=== PATIENT | male | born 1980 | race Caucasian/White ===

== ENCOUNTER 2021-03-31 13:22 | Outpatient (REF) | payer OTHER, SELFPAY ==
[2021-03-31 16:50] LABS: HCT 47.3 % (40.0-50.0); HGB 15.8 g/dL (13.5-17.5); MCH 29.5 pg (27.0-33.0); MCHC 33.4 % (32.0-36.0); MCV 88.2 fL (80-95); MPV 11.9 fL (8.0-11.0); Platelet Count 213 10^3/uL (130-400); RBC 5.36 10^6/uL (4.36-5.78); RDW 12.6 % (11.8-14.1); RDW-SD 40.2 fL; WBC 7.77 10^3/uL (4.4-10.8)
[2021-03-31 17:16] LABS: ALT 84 U/L (16-63); AST 26 U/L (15-37); Albumin 4.1 g/dL (3.4-5.0); Alkaline Phosphatase 123 U/L (46-116); Anion Gap 9.5 mmol/L (3-11); BUN 13 mg/dL (7-18); Bilirubin, Total 0.4 mg/dL (0.2-1.0); CO2 27.5 mmol/L (21.0-32.0); CREATININE 1.1 mg/dL (0.70-1.30); Calcium 9.5 mg/dL (8.5-10.1); Calculated LDL 169 mg/dL (<100); Chloride 105 mmol/L (98-107); Cholesterol 238 mg/dL (<200); Glucose 80 mg/dL (74-106); HDL Cholesterol 39 mg/dL (40-60); Potassium 4.6 mmol/L (3.5-5.1); Sodium 142 mmol/L (136-145); TSH (W/Ref FT4) 2.69 uIU/mL (0.36-3.74); Total Protein 7.7 g/dL (6.4-8.2); Triglyceride 153 mg/dL (<150)
== END 2021-03-31 13:23 | disposition home or self-care (01) ==
LOC: NCHCN 13:22
PROVIDERS: Visit Provider Internal Medicine
DX: R03.0 Elevated blood-pressure reading, without diagnosis of hypertension (principal); E66.9 Obesity, unspecified
CPT/HCPCS: 80053; 80061; 85027; 84443

== ENCOUNTER 2022-12-17 19:47 | Emergency (ER) | payer OTHER, SELFPAY ==
[2022-12-17] VITALS (30 sets, daily range): BP systolic 100–153; BP diastolic 56–84; PULSE 68–92; RESP 13–29; TEMP 36.8; O2SAT 95–98
--- NOTE | 2022-12-17 19:45 | RT.EKG_ITS ---
APPROVED REPORT Exam: Resting ECG Reason for Exam: chest tightness Patient Location: E HR:82 bpm ECG Measurements Heart Rate 82 AXIS GA 192 P 54 QRSd 79 QRS 6 QT 352 T 26 QTc 411 Conclusion Sinus rhythm...normal P axis, V-rate 60- 99
--- NOTE | 2022-12-17 20:00 | DI.RAD_ITS ---
Exam(s) XR PORTABLE CHEST AP EXAM: XR PORTABLE CHEST AP CLINICAL HISTORY: chest pain TECHNIQUE: 2D digital imaging was performed. COMPARISON: No exams were available for comparison FINDINGS: LUNGS: Clear. No pleural abnormality seen. HEART: Normal size. AORTA: Normal diameter. BONES: Unremarkable for age. Soft tissues: Unremarkable. IMPRESSION: No acute findings. DATA REPOSITORY: RADIATION DOSE DELIVERED:
--- NOTE | 2022-12-17 20:06 | ED.GENADUL_ITS ---
Discharge Plan Disposition Patient Disposition: Home Discharge Details Clinical Impression: Chest pain of uncertain etiology Primary Care Provider: Unknown,Unknown ED Provider: Colleen Darling Home Meds and New Rx's Prescriptions: No Action No Known Home Meds Discharge Instructions Instructions: Chest Pain (ED) Additional Instructions: Return to ED for crushing chest pain or difficulty breathing. Pain on the right-hand side going into your shoulder may be coming from your gallbladder. Diagnostic imaging should call you Tuesday for an appointment time for right u pper quadrant ultrasound. You can follow-up with your primary care doc for these results and additional testing as deemed necessary. Return also for fever of 100.4 or above with severe abdominal pain. Medical Decision Making Patient was updated on all of his test results and we discussed differential diagnosis. He has had constant pain since this morning and his troponin EKG are normal so it is highly unlikely this is ACS. Patient's PERC was negative as was his dimer. This essentially rules out PE. Chest x-ray was negative. His pain is mostly on the right-hand side and in his shoulder. He but the vague right upper quadrant pain that he has this may be coming from his gallbladder. An outpatient right upper quadrant ultrasound was ordered and he will follow-up with his PCP. We did discuss what to come back for. Imaging Data Radiologic Study: My impression: NAD Lab Data Lab results reviewed: Yes I reviewed the patient's lab results. Lab results narrative: Benign ECG Data Attestation: I personally reviewed and interpreted this ECG (s) as follows: (EKG: Normal sinus rhythm at 80, normal intervals, no ST-T changes) HPI General Date/Time Provider Initiated Documentation: 12/17/22 20:02 . HPI Narrative: This 42-year-old male patient presents with a chief complaint substernal chest pain radiating into his right shoulder that began this morning. He states it began when he was in his car and stressed out about traffic which was unnecessary. He states the pain is a tightness and about a 2 out of 10. It has been constant all day. He does say that it seems to be worse when he takes a deep breath. He has a little bit of right upper quadrant pain as well. He denies fever or URI symptoms. There is no difficulty breathing. Nothing makes the pain better or worse except that deep breath. He has no pedal edema or calf pain. He is PERC negative. Related Data Home Medications Medication Instructions Recorded Confirmed Unknown [No Known Home Meds] 12/17/22 12/17/22 Allergies Allergy/AdvReac Type Severity Reaction Status Date / Time No Known Allergies Allergy Unverified 12/17/22 19:59 General Stated Complaint: Chest Pain AMARA: 2 Review of Systems Constitutional Constitutional: Denies chills, Denies fever(s), Denies headache(s) and Denies weakness Eyes Eyes: Denies diplopia and Reports other (no redness) ENT Ears, Nose, Mouth, and Throat: Denies otalgia, Denies headache(s), Denies nasal congestion, Denies nasal discharge, Denies neck pain and Denies sore throat Cardiovascular Cardiovascular: Reports chest pain (SS and R sided), Denies palpitations and Denies dyspnea Respiratory Respiratory: Denies cough and Denies dyspnea Gastrointestinal Gastrointestinal: Reports abdominal pain (vague RUQ), Denies diarrhea, Denies nausea and Denies vomiting Genitourinary Genitourinary: Denies difficulty urinating and Denies dysuria Musculoskeletal Musculoskeletal: Denies myalgias (Except right shoulder discomfort), Denies muscle weakness, Denies neck pain, Denies numbness and Reports other (edema) Integumentary/Breasts Skin/Breast: Denies change in pigmentation and Denies rash Neurologic Neurologic: Denies headache(s), Denies numbness and Denies weakness Endocrine Endocrine: Denies palpitations PFSH All Active Problems Chest pain of uncertain etiology (Acute) Social History Smoking/Tobacco Use Status: Former Tobacco Use Smoking risk assessment performed?: Yes Substance use type: does not use Exam Const General: no acute distress, well developed, well groomed and not in acute distress Nutritional Appearance: well nourished Orientation: alert and oriented x3 HENMT Head: normocephalic and atraumatic Ears: external ears normal Mouth: oropharynx normal and moist mucous membranes Throat: posterior oropharynx normal Eyes Conjunctivae: conjunctivae normal Neck Neck: full ROM and supple Chest Chest: normal inspection of the chest Other: No chest wall tenderness to palpation Resp Effort & Inspection: normal respiratory effort Auscultation: clear to auscultation bilaterally Cardio Rate: regular rate Rhythm: regular rhythm Heart Sounds: no murmurs and no rubs GI Inspection: normal to inspection Palpation: soft, tender (Mild right upper quadrant tenderness to palpation without GR) and other (non distended) Auscultation: normal bowel sounds Skin General skin exam: no rashes or lesions noted and other (pink, warm, dry) Neuro General: patient alert, patient awake and patient oriented x3 Speech: speech normal Motor: other (BAKER) Sensory Exam: no sensory deficits noted Extrem General: normal to inspection, full ROM and pedal edema present Right upper extremity: full ROM (w/o pain) and shoulder/upper arm (NTP) Psych Mental Status: mental status grossly normal Speech and Movement: speech and movement normal Affect: normal affect Course Vital Signs Vital signs: Vital Signs Temperature 36.8 C 12/17/22 19:55 Pulse 79 12/17/22 19:55 Respiratory Rate 16 12/17/22 19:55 Blood Pressure 153/84 H 12/17/22 19:55 Pulse Oximetry 98 12/17/22 19:55 Temperature 36.8 C 12/17/22 19:55 Temperature Source Temporal Artery Scan 12/17/22 19:55 Pulse 79 12/17/22 19:55 Respiratory Rate 16 12/17/22 19:55 Respiratory Effort Normal 12/17/22 19:55 Blood Pressure 153/84 H 12/17/22 19:55 Blood Pressure Position Supine 12/17/22 19:55 Pulse Oximetry 98 12/17/22 19:55
[2022-12-17 20:21] LABS: Abs Immature Grans 0.04 10^3/uL (0.0-0.06); Absolute Basophil Count 0.02 10^3/uL (0.0-0.2); Absolute Lymphocyte Count 1.76 10^3/uL (1.2-3.4); Absolute Monocyte Count 0.81 10^3/uL (0.1-0.8); Absolute Neutrophil Count 8.82 10^3/uL (1.2-6.7); Basophils % 0.2; HCT 45.3 % (40.0-50.0); HGB 14.9 g/dL (13.5-17.5); Immature Grans % 0.3; Lymphocytes % 15.2; MCH 28.9 pg (27.0-33.0); MCHC 32.9 % (32.0-36.0); MCV 88 fL (80-95); MPV 10.1 fL (8.0-11.0); Neutrophils % 76.3; Platelet Count 196 10^3/uL (130-400); RBC 5.16 10^6/uL (4.36-5.78); RDW 13.2 % (11.8-14.1); RDW-SD 42.4 fL; WBC 11.56 10^3/uL (4.4-10.8)
[2022-12-17 20:23] LABS: Absolute Eosinophil Count 0.12 10^3/uL (0.0-0.7)
[2022-12-17 20:37] LABS: ALT 51 U/L (16-63); AST 24 U/L (15-37); Alkaline Phosphatase 105 U/L (46-116); Anion Gap 6.3 mmol/L (3-11); BUN 21 mg/dL (7-18); Bilirubin, Total 0.7 mg/dL (0.2-1.0); CO2 27.7 mmol/L (21.0-32.0); CREATININE 1.2 mg/dL (0.70-1.30); Calcium 9.3 mg/dL (8.5-10.1); Chloride 104 mmol/L (98-107); Estimated GFR 77.43 (mL/min/1.73m2); Glucose 94 mg/dL (74-106); Potassium 3.7 mmol/L (3.5-5.1); Sodium 138 mmol/L (136-145); Total Protein 7.7 g/dL (6.4-8.2); Troponin I < 50 ng/L (<or=60)
--- NOTE | 2022-12-17 20:47 | DI.VRAD_ITS ---
PROCEDURE INFORMATION: Exam: XR Chest Exam date and time: 12/17/2022 8:24 PM Age: 42 years old Clinical indication: Other: Chest pain TECHNIQUE: Imaging protocol: Radiologic exam of the chest. Views: 1 view. COMPARISON: No relevant prior studies available. FINDINGS: Lungs: Unremarkable. No consolidation. Pleural spaces: Unremarkable. No pleural effusion. No pneumothorax. Heart/Mediastinum: Unremarkable. No cardiomegaly. Bones/joints: Unremarkable. IMPRESSION: No acute findings. Dictated and Authenticated by: Mike Traore MD. Ordering:JUNIOR Macias MD
[2022-12-17 20:59] LABS: Lipase 56 U/L (16-77)
[2022-12-17 22:43] LABS: D-Dimer 281 ng/mlFEU (<500)
== END 2022-12-17 23:06 | disposition home or self-care (01) ==
PROVIDERS: Emergency Provider Emergency Medicine
DX: R07.9 Chest pain, unspecified (principal); R10.11 Right upper quadrant pain
CPT/HCPCS: 36415; 80053; 83690; 93005; 99284; 71045; 83735; 84484; 85025; 85379; 93010

== ENCOUNTER 2023-05-05 16:15 | Outpatient (REF) | payer OTHER, SELFPAY ==
[2023-05-05 16:35] LABS: Uric Acid 5.9 mg/dL (3.5-7.2)
[2023-05-05 18:15] LABS: Calculated LDL 168 mg/dL (<100); Cholesterol 243 mg/dL (<200); HDL Cholesterol 53 mg/dL (40-60); Triglyceride 112 mg/dL (<150)
== END 2023-05-05 16:16 | disposition home or self-care (01) ==
LOC: NCHCN 16:15
PROVIDERS: Visit Provider Nurse Practitioner Family
DX: M10.9 Gout, unspecified (principal); E66.9 Obesity, unspecified
CPT/HCPCS: 80061; 84550